=== PATIENT | female | born 1950 | race Caucasian/White ===

== ENCOUNTER 2018-05-20 08:26 | Emergency (ER) | payer MEDICARE ==
[2018-05-20] MEDS ORDERED: Dexamethasone 10 MG/ML VIAL ONE (09:07)
== END 2018-05-20 09:22 | disposition home or self-care (01) ==
LOC: SCSER 08:26
DX: J06.9 Acute upper respiratory infection, unspecified (principal); F17.210 Nicotine dependence, cigarettes, uncomplicated
CPT/HCPCS: 99283; J1100

== ENCOUNTER 2018-07-09 14:41 | Outpatient (CLI) | payer MEDICARE, BC ==
--- NOTE | 2018-07-09 16:08 | RAD ---
TWO VIEWS CHEST: Date: 07-09-18 Provided Clinical History: Dyspnea. FINDINGS: Cardiac and mediastinal silhouette are within normal limits. Lungs appear clear. No pleural fluid or pneumothorax apparent. IMPRESSION: No evidence for an acute cardiopulmonary process. POS: [facility]
== END 2018-07-09 14:42 | disposition home or self-care (01) ==
LOC: BICRAD 14:41
PROVIDERS: ATTEND Internal Medicine
DX: R06.00 Dyspnea, unspecified (principal)
CPT/HCPCS: 71046

== ENCOUNTER 2019-08-07 09:15 | Outpatient (CLI) | payer MEDICARE, BC | END 2019-08-07 09:16 | disposition home or self-care (01) | LOC: CTENTCT 09:15 | PROVIDERS: ATTEND Student in an Organized Health Care Education/Training Program | DX: J01.90 Acute sinusitis, unspecified (principal) | CPT/HCPCS: 70486 ==

== ENCOUNTER 2020-08-18 12:40 | Outpatient (CLI) | payer MEDICARE, BC | END 2020-08-18 12:41 | disposition home or self-care (01) | LOC: BICMAMMO 12:40 | PROVIDERS: ATTEND Internal Medicine | DX: Z12.31 Encounter for screening mammogram for malignant neoplasm of breast (principal) | CPT/HCPCS: 77063; 77067 ==

== ENCOUNTER 2020-09-16 15:57 | Outpatient (CLI) | payer MEDICARE, BC | END 2020-09-16 15:58 | disposition home or self-care (01) | LOC: BICRAD 15:57 | PROVIDERS: ATTEND Internal Medicine | DX: R06.00 Dyspnea, unspecified (principal) | CPT/HCPCS: 71046 ==

== ENCOUNTER 2021-02-26 06:48 | Outpatient (CLI) | payer MEDICARE, BC ==
[2021-02-26] MEDS ORDERED: Magnevist 469MG/ML 20 ML VIAL ONE (10:20)
== END 2021-02-26 06:49 | disposition home or self-care (01) ==
LOC: BICMRI 06:48
PROVIDERS: ATTEND Internal Medicine
DX: G45.9 Transient cerebral ischemic attack, unspecified (principal); R42 Dizziness and giddiness
CPT/HCPCS: 70553; 82565; 93880; A9579

== ENCOUNTER 2023-02-15 13:45 | Outpatient (CLI) | payer MEDICARE, BC | END 2023-02-15 13:46 | disposition home or self-care (01) | LOC: BICMAMMO 13:45 | PROVIDERS: ATTEND Internal Medicine | DX: Z12.31 Encounter for screening mammogram for malignant neoplasm of breast (principal); Z91.89 Other specified personal risk factors, not elsewhere classified | CPT/HCPCS: 77063; 77067 ==

== ENCOUNTER 2023-06-16 10:45 | Outpatient (CLI) | payer MEDICARE, BC | END 2023-06-16 10:46 | disposition home or self-care (01) | LOC: BICULT 10:45 | PROVIDERS: ATTEND Internal Medicine | DX: R31.0 Gross hematuria (principal); Z87.891 Personal history of nicotine dependence | CPT/HCPCS: 76775 ==